=== PATIENT | female | born 1990 | race Caucasian/White ===

== ENCOUNTER 2019-01-09 09:15 | Emergency (ER) | payer BC ==
[~2019-01-09] VITALS: Ht 165.1 cm; Wt 89.4 kg
[2019-01-09 09:20] VITALS: BP 137/74; PULSE 72; RESP 18; Ht 165.1 cm; Wt 89.4 kg
== END 2019-01-09 13:52 | disposition home or self-care (01) ==
LOC: FTE 09:15
DX: O20.9 Hemorrhage in early pregnancy, unspecified (principal); Z3A.01 Less than 8 weeks gestation of pregnancy
CPT/HCPCS: 36415; 76801; 76817; 80053; 81001; 84702; 85025; 86900; 86901; Z7502